=== PATIENT | female | born 1940 | race Caucasian/White ===

== ENCOUNTER 2024-02-04 16:51 | Emergency (ER) | payer MEDICARE, SELFPAY ==
[2024-02-04] VITALS (7 sets, daily range): BP systolic 166–189; BP diastolic 78–84; PULSE 75–79; RESP 18; TEMP 36.8; O2SAT 95–97; BMI 27.4
--- NOTE | 2024-02-04 17:11 | DI.RAD.S_ITS ---
PROCEDURE: XR HAND RT MIN 3V INDICATIONS: fall TECHNIQUE: 3 views of the hand(s) acquired. COMPARISON: None. FINDINGS: Bones: Diffuse osteopenia. Oblique fracture of the 4th metacarpal. Carpal bones are normally aligned. No suspicious bony lesions. Soft tissues: No suspicious soft tissue calcifications. IMPRESSION: Mildly displaced oblique fracture of the 4th metacarpal shaft. Dictated by: Eloy Vera M.D. on 02/04/2024 at 17:47 Approved by: Eloy Vera M.D. on 02/04/2024 at 17:48
[2024-02-04] MEDS: BACITRACIN OINT 0.9 GM PCKT 1 APPLIC TOP (18:02)
--- NOTE | 2024-02-04 18:23 | ED_ITS ---
HPI - Fall General Chief Complaint: Fall Stated Complaint: fell/head inj/facial inj Time Seen by Provider: 02/04/24 17:56 History of Present Illness HPI Narrative: 83-year-old woman with a history of falling and tripping all of her life. She will notice occasionally if her left foot is forward it feels that her right foot is stuck on the floor and this is what causes her falls. She fell about a week ago has a contusion to the right knee. This evening was rushing to get to a [employer] phone and stumbled falling forward hitting her forehead against the wooden back edge of the couch and then catching herself with her hand on the floor. She is complaining of hand neck head pain. She has an abrasion to her right cheek significant hematoma developing over her forehead. She has not anticoagulated. There was no loss of consciousness. She has not complaining of any other pain or injuries. She notes that the bruise in the right knee continues to hurt and she may have hit the right knee again. She was able to walk in with minimally antalgic gait. Related Data Allergies Allergy/AdvReac Type Severity Reaction Status Date / Time nickel Allergy skin peels Verified 02/04/24 16:57 off morphine AdvReac catatonia Verified 02/04/24 16:57 Sulfa (Sulfonamide AdvReac Hives Verified 02/04/24 16:57 Antibiotics) Review of Systems Review of Systems Narrative: Pertinent positive and negative findings as per HPI Patient History Social History Smoking Status: Never smoker Smoking Status: Never smoker Substance Use Type: does not use Exam Initial Vital Signs Initial Vital Signs: Vital Signs Temperature 98.3 F 02/04/24 16:57 Pulse Rate 75 02/04/24 16:57 Respiratory Rate 18 02/04/24 16:57 Blood Pressure 189/84 H 02/04/24 16:57 Pulse Oximetry 96 02/04/24 16:57 Oxygen Delivery Method Room Air 02/04/24 16:57 General: in no acute distress. Able to give a complete and coherent history. Well-nourished well-developed HEENT: Moist mucous membranes, normal sclera with reactive pupils, she has a large hematoma developing over the right portion of her forehead. There is a smaller bruise to the lateral aspect of her right eye where her glasses sc ratched. No other eye abnormalities. She has not approximately 2 cm in diameter circular abrasion without laceration over her cheek where her cheek hit the back of the couch. There is no skull tenderness, no maxillary or mandibular tenderness with palpation or dental occlusion. Neck: Tender along the entire right side of her neck with specific midline tenderness at approximately C3 and C7. She has a soft mobile 1 cm palpable node in the left submandibular area that she states has been there for a number of years. Respiratory: Lungs are clear to auscultation, no wheezing no rales no rhonchi. Full and symmetrical air movement Cardiac: Regular rate and rhythm no murmurs no bruits Abdomen: Soft, nontender, good bowel tones, no flank pain Skin: Warm and dry, no rashes Neurologic: Grossly neurologically intact with no obvious asymmetries or abnormalities Extremities: Week old bruise to the right knee, minor abrasion with new contusion to the right elbow. No pain or tenderness with right shoulder elbow or wrist through entire range of motion. Her right hand is tender through the palmar surface with bruising developing over the dorsum. The right hand does not have any obvious or palpable bony abnormalities she is neurovascularly intact with no wrist tenderness Psych: Cooperative, appropriate insight and affect Course Orders Ordered: ED Orders 02/04/24 17:11 XR hand RT min 3V Stat 02/04/24 18:23 CT cervical spine wo con Stat CT head/brain wo con Stat Discontinued Medications Bacitracin (Bacitracin Oint 0.9 Gm Pckt) 1 applic TOP NOW ONE Stop: 02/04/24 17:46 Last Admin: 02/04/24 18:02 Dose: 1 applic Documented By: TC Vital Signs Vital signs: Vital Signs - 8 hr 02/04/24 16:57 02/04/24 19:07 Temperature 98.3 F Pulse Rate 75 79 Respiratory Rate 18 18 Blood Pressure 189/84 H 179/84 H Pulse Oximetry 96 96 Oxygen Delivery Method Room Air Room Air MDM - Fall Imaging Data CT scan - head: My Impression: PROCEDURE: CT HEAD/BRAIN WO CON INDICATIONS: fall, hit head, not anticoagulated TECHNIQUE: Noncontrast 4.5 mm thick angled axial sections acquired from the foramen magnum to the vertex, with coronal and sagittal reformats. For radiation dose reduction, the following was used: automated exposure control, adjustment of mA and/or kV according to patient size. COMPARISON: None. FINDINGS: Image quality: Diagnostic. CSF spaces: Basal cisterns are patent. No extra-axial fluid collections. The ventricles are symmetric in size and shape. Brain: No intracranial bleeds or masses. There is cerebral volume loss for age, with resultant ventricular and sulcal prominence. There are periventricular and deep white matter chronic small vessel ischemic changes. There is intracranial internal carotid artery atherosclerosis. Skull and face: Calvarium and visualized facial bones appear intact, without suspicious lesions. Sinuses: Visualized sinuses and mastoids are clear. IMPRESSION: 1. CT head without acute intracranial abnormalities or acute calvarial fractures. 2. Age-related senescent changes and sequela of chronic small vessel ischemic disease. Dictated by: Eloy Vera M.D. on 02/04/2024 at 19:44 CT - cervical spine: Radiologist's Impression: PROCEDURE: CT CERVICAL SPINE WO CON INDICATIONS: Fell, hit head, + neck pain, not on anticoagulants TECHNIQUE: Noncontrast 3 mm thick sections acquired from the skull base to the T4 level. Sagittal and coronal reformats were then constructed. For radiation dose reduction, the following was used: automated exposure control, adjustment of mA and/or kV according to patient size. COMPARISON: None. FINDINGS: Image quality: Diagnostic. Bones: No acute fractures or dislocations. No acute compression fractures of the vertebral bodies. Craniocervical junction is intact. C1-C2 relationship is preserved. Visualized superior ribs are intact. Moderate-severe multilevel cervical spondylosis. Soft tissues: Prevertebral soft tissues are normal in thickness. No paravertebral hematomas. No apical pneumothoraces. IMPRESSION: CT cervical spine without acute fracture or traumatic malalignment. Moderate-severe multilevel cervical spondylosis. Dictated by: Eloy Vera M.D. on 02/04/2024 at 19:39 MDM Narrative Medical decision making narrative: CC: Stumbled at home fell hitting head, face neck pain right arm and right hand pain Complicating co-morbidities: Self-reported history of multiple falls no loss of consciousness Data collected from: patient, daughter Differential considered: Intracranial hemorrhage, cervical spine injury, skull fracture, facial fractures, hand or wrist fractures Exam documented above, pertinent findings include: Patient is alert and appropriate. Contusion to the forehead, small abrasion to the right side of the eye circular superficial abrasion to the right cheek, right side of the neck is tender right hand is tender with bruising. All other joints are unremarkable. Remainder of exam is benign Imaging studies independently reviewed: Hand x-ray showsMildly displaced oblique fracture of the 4th metacarpal shaft. Treatments: Ulnar gutter splint in the right hand is placed. She is neurovascularly intact pre and postprocedure. Does find that is stabilization is helpful with pain control. Re-evaluations: Patient is having minimal pain, reviewed x-rays of her hand. Discussion: 83-year-old woman with mechanical fall right 4th metacarpal shaft fracture with ulnar gutter splint placed in the emergency department. Abrasion to the right cheek and hematoma to the right forehead with no CT head or cervical spine abnormalities appreciated. No other obvious injuries. Patient very clearly describes mechanical fall and additional medical workup, imaging, lab tests or hospitalization and not indicated today. Did review with her anticipated increased pain over the next couple of days. She typically will take 200 mg of ibuprofen b.i.d. and Tylenol through the day if she needs it for her arthritis pain and feels that this be adequate. We will ask her to follow up with Orthopedic surgery for definitive treatment of her hand fracture. Questions are answered and she is safe for discharge Discharge Plan Departure Patient Disposition: Home Clinical Impression: Closed hand fracture Qualifiers: Encounter type: initial encounter Laterality: right Qualified Code(s): S62.91XA - Unspecified fracture of right wrist and hand, initial encounter for closed fracture Abrasion of face Qualifiers: Encounter type: initial encounter Qualified Code(s): S00.81XA - Abrasion of other part of head, initial encounter Traumatic hematoma of forehead Qualifiers: Encounter type: initial encounter Qualified Code(s): S00.83XA - Contusion of other part of head, initial encounter Instructions: DI for a Hand Fracture, DI for Hematoma (Bruise) Activity Restrictions/Additional Instructions: Thank you for coming in today I am sorry that you have this fall. Fortunately, you do not have any bleeding in your head and your cervical spine does not show any acute fractures. You likely will have a bit of a headache, the bruise over your forehead will become rather impressive and likely include your entire eye. The scratch to the side of your eye will improve. Using Neosporin or topical antibiotic ointment to the abrasion over your right cheek we will help so that the scab heals faster and will cause less pain. You did break your hand. Is the 4th bone in the middle of your hand and looks like it is a fairly clean break that likely will heal without surgery. However, you do need to call [facility] at [phone] and explain that you were in the emergency department, have hand fracture and need to be seen and evaluated for definitive treatment of this fracture. Please call them tomorrow. You can continue to use you the ibuprofen doses that you have used at home as well as Tylenol. Icing your hand and keeping it elevated may be helpful with swelling and pain overall If you find that you are getting worse or develop any new symptoms, please feel free to return to the emergency department for further evaluation. Stand Alone Forms: Patient Portal/API
== END 2024-02-04 20:32 | disposition home or self-care (01) ==
PROVIDERS: Emergency Provider Emergency Medicine
DX: S00.83XA Contusion of other part of head, initial encounter (principal); S62.91XA Unspecified fracture of right hand, initial encounter for closed fracture; M54.2 Cervicalgia; S00.81XA Abrasion of other part of head, initial encounter; W18.30XA Fall on same level, unspecified, initial encounter
CPT/HCPCS: 29125; 70450; 72125; 73130; 99283; 99284